=== PATIENT | male | born 1935 | race Caucasian/White ===

== ENCOUNTER 2016-04-02 15:53 | Inpatient (IN) | payer OTHER ==
[~2016-04-02] VITALS: Ht 170 cm; Wt 53.0 kg
[~2016-04-02 15:53] MED LIST: ALBUTEROL SULF0.5 M1 INH; AMLODIPINE BESYL5 MG; ASPIRIN81 M1; CEFUROXIME AXE250 MG PO; CRESTOR20 MG; GARLIC1 EAC1 PO; KEFLEX 500 MG E2 CAP PO; KLOR-CON M2020 ME1 PO; LEVOFLOXACIN500 MG PO; LISINOPRIL10 M1 PO; LISINOPRIL40 MG PO; OSTEO BI-FLEX1 EAC1 PO; TYLENOL EXTRA500 M2 PO; VITAMIN C500 MG PO; VITAMIN D50000 I1
[2016-04-02 16:01] VITALS: BP 190/90
[2016-04-02] MEDS ORDERED: PRINIVIL10 MG PO (16:07)
[2016-04-02 16:39] LABS: BASO # 0.1 10*3/uL (0.0-0.1); BASO % 1.3 % (0.0-1.0); EOS # 0.1 10*3/uL (0.0-0.4); EOS % 1.6 % (1.0-4.0); HEMOGLOBIN 10.9 g/dl (14.0-18.0); LYMPH # 2.3 10*3/uL (1.3-4.4); LYMPH % 29.6 % (27.0-41.0); MEAN CELL VOLUME 95.4 fl (80.0-94.0); MEAN CORPUSCULAR HGB 31.5 pg (27.0-31.0); MEAN PLATELET VOLUME 10.3 fl (9.6-12.3); MONO # 0.9 10*3/uL (0.1-1.0); MONO % 12.1 % (3.0-9.0); NEUT # 4.2 10*3/uL (2.3-7.9); PLATELET COUNT AUTOMATED 300 10*3/uL (130-400); RED BLOOD COUNT 3.46 10*6/uL (4.50-5.90); RED CELL DISTRI WIDTH 14.3 % (0-14.5); WHITE BLOOD COUNT 7.6 10*3/uL (4.8-10.8)
[2016-04-02 16:47] LABS: PROTHROMBIN TIME 10.3 SECONDS (9.0-12.4)
[2016-04-02 16:58] LABS: ALBUMIN 3.3 gm/dl (3.1-4.5); ALKALINE PHOSPHATASE 92 U/L (45-117); BILIRUBIN, TOTAL 0.4 mg/dl (0.2-1.0); BUN 17 mg/dl (7-24); CARBON DIOXIDE 24 mmol/L (21-32); CHLORIDE 103 mmol/L (98-107); CKMB 0.9 ng/ml (0.5-3.6); CPK 36 U/L (39-308); EST GLOM FILT AFRICAN AMERICAN > 60 ml/min; GLUCOSE 104 mg/dL (65-99); LDH 163 U/L (87-241); MAGNESIUM 1.9 mg/dL (1.5-2.1); POTASSIUM 4.9 mmol/L (3.5-5.1); SGOT/AST 14 IU/L (3-35); SGPT/ALT 13 U/L (12-78); SODIUM 138 mmol/L (136-145); TOTAL PROTEIN 7.4 gm/dL (6.4-8.2)
[2016-04-02 17:00] LABS: TROPONIN I < 0.015 ng/ml (<0.5)
[2016-04-02 17:27] VITALS: BP 180/82
[2016-04-02 17:28] VITALS: BP 180/82
[2016-04-02 17:46] VITALS: BP 146/77
[2016-04-02 18:34] VITALS: BP 159/65
[2016-04-02 19:13] VITALS: BP 177/57
[2016-04-02] MEDS ORDERED: ASPIRIN CHEWABL81 MG PO (19:17)
[2016-04-03] VITALS: BP 160/63
[2016-04-03 00:42] LABS: CKMB 0.8 ng/ml (0.5-3.6); CPK 37 U/L (39-308); TROPONIN I < 0.015 ng/ml (<0.5)
[2016-04-03 06:00] LABS: CKMB 0.6 ng/ml (0.5-3.6); CPK 32 U/L (39-308)
[2016-04-03 06:04] LABS: TROPONIN I < 0.015 ng/ml (<0.5)
[2016-04-03 06:08] LABS: ALBUMIN 2.9 gm/dl (3.1-4.5); ALKALINE PHOSPHATASE 82 U/L (45-117); BILIRUBIN, TOTAL 0.5 mg/dl (0.2-1.0); BUN 16 mg/dl (7-24); CARBON DIOXIDE 26 mmol/L (21-32); CHLORIDE 106 mmol/L (98-107); CHOLESTEROL 195 mg/dL (<200); EST GLOM FILT AFRICAN AMERICAN > 60 ml/min; FREE T4 1.02 ng/dl (0.76-1.46); GLUCOSE 102 mg/dL (65-99); HDL CHOLESTEROL 63 mg/dl (40-60); LDL CHOLESTEROL 113 mg/dL (9-159); PHOSPHOROUS 3.8 mg/dL (2.5-4.9); POTASSIUM 4.3 mmol/L (3.5-5.1); SGOT/AST 14 IU/L (3-35); SGPT/ALT 15 U/L (12-78); SODIUM 142 mmol/L (136-145); TOTAL PROTEIN 6.7 gm/dL (6.4-8.2); TRIGLYCERIDES 97 mg/dl (<150); VLDL CHOLESTEROL 19 mg/dL (6-40)
[2016-04-03 06:10] LABS: BASO # 0.1 10*3/uL (0.0-0.1); BASO % 1.5 % (0.0-1.0); EOS # 0.3 10*3/uL (0.0-0.4); EOS % 4.4 % (1.0-4.0); HEMATOCRIT 31.7 % (42.0-52.0); HEMOGLOBIN 10.3 g/dl (14.0-18.0); LYMPH # 2.5 10*3/uL (1.3-4.4); LYMPH % 38.2 % (27.0-41.0); MEAN CELL VOLUME 94.9 fl (80.0-94.0); MEAN CORPUSCULAR HGB 30.8 pg (27.0-31.0); MEAN CORPUSCULAR HGB CONC 32.5 g/dl (33.0-37.0); MEAN PLATELET VOLUME 10.5 fl (9.6-12.3); MONO # 0.8 10*3/uL (0.1-1.0); MONO % 12.8 % (3.0-9.0); NEUT # 2.8 10*3/uL (2.3-7.9); NEUT % 42.8 % (47.0-73.0); PLATELET COUNT AUTOMATED 286 10*3/uL (130-400); RED BLOOD COUNT 3.34 10*6/uL (4.50-5.90); RED CELL DISTRI WIDTH 14.4 % (0-14.5); WHITE BLOOD COUNT 6.5 10*3/uL (4.8-10.8)
[2016-04-03 06:12] LABS: HEMOGLOBIN A1c 5.2 % (4.8-5.6)
[2016-04-03 06:53] LABS: PROTHROMBIN TIME 10.7 SECONDS (9.0-12.4)
[2016-04-03 07:06] LABS: FOLIC ACID 11.23 ng/mL (>5.38)
[2016-04-03 08:00] VITALS: BP 150/80
[2016-04-03 12:00] VITALS: BP 148/74
[2016-04-03 12:29] LABS: CKMB 0.7 ng/ml (0.5-3.6); CPK 34 U/L (39-308)
[2016-04-03 12:30] LABS: TROPONIN I < 0.015 ng/ml (<0.5)
[2016-04-03 16:00] VITALS: BP 148/74
== END 2016-04-03 15:45 | disposition home or self-care (01) | DRG 308 ==
LOC: ED 15:53 → 4E 17:12 → EDHOLD 17:12 → 4E 17:52
PROVIDERS: Hospitalist; Nurse Practitioner Family
DX: I49.8 Other specified cardiac arrhythmias (principal); E43 Unspecified severe protein-calorie malnutrition; Z68.1 Body mass index [BMI] 19.9 or less, adult; I10 Essential (primary) hypertension; I25.10 Atherosclerotic heart disease of native coronary artery without angina pectoris; D53.1 Other megaloblastic anemias, not elsewhere classified; I49.5 Sick sinus syndrome; Z91.030 Bee allergy status; I25.2 Old myocardial infarction; Z91.81 History of falling; Z87.81 Personal history of (healed) traumatic fracture; Z95.5 Presence of coronary angioplasty implant and graft; Z82.3 Family history of stroke; Z82.49 Family history of ischemic heart disease and other diseases of the circulatory system; Z79.82 Long term (current) use of aspirin; Z79.899 Other long term (current) drug therapy

== ENCOUNTER → 2016-04-07 | Outpatient (CLI) | payer OTHER ==
[~2016-04-07] MED LIST changes: +ASPIRIN CHEWABL81 MG PO; +PRINIVIL10 MG PO
== END | disposition home or self-care (01) ==
LOC: CARD 08:49
DX: I49.5 Sick sinus syndrome (principal)